=== PATIENT | male | born 1955 | race Native Hawaiian/Other Pacific Islander ===

== ENCOUNTER → 2017-01-19 | Outpatient (CLI) | payer BC | END | disposition home or self-care (01) | LOC: GMAB 10:33 | PROVIDERS: ATTEND Family Medicine | DX: Z51.81 Encounter for therapeutic drug level monitoring (principal); Z12.5 Encounter for screening for malignant neoplasm of prostate; I10 Essential (primary) hypertension ==

== ENCOUNTER 2018-04-02 15:12 | Emergency (ER) | payer BC ==
[2018-04-02 15:24] VITALS: TEMP 98.5
--- NOTE | 2018-04-02 15:41 | RAD ---
EXAM DESCRIPTION: Ankle,Left 3 Views CLINICAL HISTORY: 62 years Male, ankle injury COMPARISON: None. FINDINGS: Minimally displaced fracture of the medial malleolus. Additional fracture of the posterior malleolus. Partially visualized fracture of the mid tibial shaft. Dislocation of the ankle joint with a posterior displacement of the talus relative to the tibia. Soft tissue swelling. IMPRESSION: Fractures involving the medial and posterior malleolus and medial tibial shaft. Ankle dislocation with posterior displacement of the talus. Electronically signed by: Moisés Tillman MD 04/02/2018 3:39 PM CDT
[2018-04-02] MEDS ORDERED: KETAMINE HCL 100 MG/ML VIAL IV ONE (15:55)
[2018-04-02] MEDS ORDERED: MIDAZOLAM INJ 5 MG/5 ML VIAL IV ONE (15:56)
[2018-04-02] MEDS ORDERED: fentaNYL CITRATE INJ 50 MCG/ML AMP IV ONE (16:22)
[2018-04-02] MEDS ORDERED: ONDANSETRON INJ 4 MG/2 ML VIAL IV ONE (17:16)
[2018-04-02] MEDS ORDERED: MORPHINE SULFATE INJ 10 MG/ML VIAL IV ONE (17:16)
--- NOTE | 2018-04-02 18:05 | ED.PDOC ---
History of Present Illness - General Chief Complaint: Lower Extremity Injury Stated Complaint: left ankle pain Time Seen by Provider: 04/02/18 15:23 Source: patient, family Exam Limitations: no limitations - History of Present Illness Initial Comments: He was walking out of the back of a truck & stepped on a board that was at an incline. He slipped & had ankle pain. Occurred: just prior to arrival Pain - Lower Extremity: moderate: Left Ankle Method of Injury: fell, twisted Improving Factors: rest Worsening Factors: movement Associated Symptoms: none Allergies/Adverse Reactions: Allergies Erythromycin Allergy (Verified 04/02/18 15:24) Home Medications: Ambulatory Orders Acetaminophen W/ Codeine [Tylenol W/ CODEINE #3] 2 ea PO Q8HRS PRN 3 Days #20 04/02/18 Losartan Potassium [Cozaar] 50 mg PO DAILY 04/02/18 Review of Systems - Review of Systems Constitutional: States: no symptoms reported Respiratory: States: no symptoms reported Cardiology: States: no symptoms reported Gastrointestinal/Abdominal: Denies: nausea, vomiting Musculoskeletal: States: joint pain, joint swelling. Denies: back pain, neck pain Neurological: States: no symptoms reported Past Medical History (General) - Patient Medical History Hx Stroke: No Hx Congestive Heart Failure: No Hx Hypertension: Yes Hx Diabetes: No - Vaccination History Hx Influenza Vaccination: No Hx Pneumococcal Vaccination: No - Social History Hx Tobacco Use: Yes Family Medical History - Family History Father Family History: Unknown Living Status: Unknown Physical Exam - Physical Exam General Appearance: Alert, Comfortable, No apparent distress Neck: supple, normal inspection Cardiovascular/Respiratory: normal peripheral pulses, no JVD Thigh/Hip: normal inspection, non-tender, no evidence of injury Leg: normal inspection, pain, soft tissue tenderness Knee: normal inspection, non-tender, no evidence of injury Ankle: bone tenderness, deformity, limited ROM, soft tissue tenderness, swelling Foot: normal inspection, non-tender, no evidence of injury Neuro/Tendon: normal sensation, normal motor functions, normal tendon functions Mental Status: alert, oriented x 3 Skin: normal color, warm/dry Progress - Progress Progress: 04/03/18 06:13 Dislocation reduced & pt. splinted. At discharge he was comfortable & understood the f/u plan with Dr. Chu. - Results/Orders Results/Orders: Hgb 14 - EKG/XRAY/CT XRAY: ankle - fx midshaft of fibula; bimalleolar ankle fx with dislocation - Consult/PCP Time Called: 18:21 Consult/PCP: Dr. Chu Procedures - Splinting Left Ankle Hand-Made Type: orthoglass Pre-Proc Neuro Vasc Exam: normal Post-Proc Neuro Vasc Exam: normal - Joint Reduction left ankle Conscious Sedation: Yes - fentanyl & versed Reduction Attempts: 3 Pre-Procedure NV Exam: Yes Post Joint Reduction Film: joint reduced Departure - Departure Clinical Impression: Fracture due to fall Fracture of lower leg Qualifiers: Encounter type: initial encounter Fracture type: closed Laterality: left Qualified Code(s): S82.92XA - Unspecified fracture of left lower leg, initial encounter for closed fracture Closed fracture of ankle Qualifiers: Encounter type: initial encounter Laterality: left Qualified Code(s): S82.892A - Other fracture of left lower leg, initial encounter for closed fracture Dislocation of ankle, left, closed Qualifiers: Encounter type: initial encounter Qualified Code(s): S93.05XA - Dislocation of left ankle joint, initial encounter Time of Disposition: 18:33 Disposition: Discharge to Home or Self Care Condition: Fair Departure Forms: ED Discharge - Pt. Copy, Patient Portal Self Enrollment Instructions: Fracture (DC), Ankle Dislocation (DC) Activity: no pushing/pulling with affected limb, other - NON-WEIGHT BEARING Referrals: Reese Chu MD [Referring] - 04/13/18 Rakan Malone MD [Primary Care Provider] - 04/08/18 Prescriptions: Acetaminophen W/ Codeine [Tylenol W/ CODEINE #3] 2 ea PO Q8HRS PRN 3 Days #20 PRN Reason: Moderate Pain Home Medications: Ambulatory Orders Acetaminophen W/ Codeine [Tylenol W/ CODEINE #3] 2 ea PO Q8HRS PRN 3 Days #20 04/02/18 Losartan Potassium [Cozaar] 50 mg PO DAILY 04/02/18
--- NOTE | 2018-04-02 18:24 | RAD ---
EXAM DESCRIPTION: Tibia/Fibula,Left (accession [id number]), Ankle,Left 3 Views (accession [id number]) CLINICAL HISTORY: 62 years Male, fx COMPARISON: None. FINDINGS: Multiple views of the left ankle demonstrating reduction of previously seen dislocation. Imaged performed at 5:18 PM demonstrates anatomic alignment of the ankle joint. Again seen are medial malleolus and posterior malleolar fractures. 2 tibia fibula views demonstrating minimally displaced fracture of the mid fibular shaft. Electronically signed by: Moisés Tillman MD 04/02/2018 6:22 PM CDT
--- NOTE | 2018-04-02 18:24 | RAD ---
EXAM DESCRIPTION: Tibia/Fibula,Left (accession [id number]), Ankle,Left 3 Views (accession [id number]) CLINICAL HISTORY: 62 years Male, fx COMPARISON: None. FINDINGS: Multiple views of the left ankle demonstrating reduction of previously seen dislocation. Imaged performed at 5:18 PM demonstrates anatomic alignment of the ankle joint. Again seen are medial malleolus and posterior malleolar fractures. 2 tibia fibula views demonstrating minimally displaced fracture of the mid fibular shaft. Electronically signed by: Moisés Tillman MD 04/02/2018 6:22 PM CDT
[2018-04-02] MEDS ORDERED: ACETAMINOPHEN W/COD #3 TAB (ER Disp) PO ONE (18:38)
[2018-04-02 19:10] VITALS: BP 160/103; O2SAT 99
== END 2018-04-02 19:08 | disposition home or self-care (01) ==
LOC: ER 15:12
DX: S82.52XA Displaced fracture of medial malleolus of left tibia, initial encounter for closed fracture (principal); I10 Essential (primary) hypertension; Z87.891 Personal history of nicotine dependence; Z79.899 Other long term (current) drug therapy; Z88.1 Allergy status to other antibiotic agents; W18.40XA Slipping, tripping and stumbling without falling, unspecified, initial encounter; Y93.01 Activity, walking, marching and hiking; Y92.812 Truck as the place of occurrence of the external cause
CPT/HCPCS: 36415; 73590; 73610; 80053; 85025; 99152; J2250; J2270; J2405; J3010